=== PATIENT | female | born 1995 | race Caucasian/White ===

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

== ENCOUNTER 2017-02-14 23:25 | Emergency (ER) | payer OTHER ==
--- NOTE | 2017-02-14 23:39 | PDOC ---
Female Problem HPI - General Chief Complaint: General Medical Stated Complaint: VAGINAL BLEEDING, 8 WEEKS Date Seen by Provider: 02/14/17 Time Seen by Provider: 23:30 Source: POSITIVE: Patient Exam Limitations: POSITIVE: No limitations Nurse's Notes Reviewed & Considered: Yes - History of Present Illness Initial Comments: The patient is a at approximately 8 weeks gestational age based on last menstrual period who presents to the emergency department with complaints of vaginal bleeding. She states that after she urinated this evening she noticed that there was blood. She describes the degree of bleeding is like a light menstrual period. She does not have any associated lower abdominal pain or cramping, fevers or chills, urinary symptoms or any other associated complaints. She has not yet seen her technical training coordinator and has an appointment with Dr. Sen the first part of February. She does have a history of polycystic ovarian syndrome. - Patient Home Medications Home Medications: Home Medications Fish Oil 1,000 Mg Softgel 1 cap PO DAILY cap 03/05/13 Pnv/Iron,Carbonyl/Docusate/FA [Mynatal Ultracaplet] 1 tab PO DAILY tab metroNIDAZOLE Tab [Flagyl Tab] 500 mg PO Q12H #14 tab 02/15/17 - Patient Allergies Allergies/Adverse Reactions: Allergies Allergy/AdvReac Type Severity Reaction Status Date / Time No Known Allergies Allergy Verified 02/15/17 02:07 Past Medical History - heen HEENT History: Denies History Cardiovascular History: Denies History Respiratory History: Denies History Gastrointestinal History: Denies History Genitourinary History: Denies History Endocrine History: Denies History Musculoskeletal History: Denies History Prosthesis or Implant: No Neurological History: Denies History Blood Disorders: Denies History Psychiatric History: Depression, ADHD Cancer History: Denies History Alcohol Use: None Substance Use Type: None Previous Surgical History: Yes Anesthesia Reactions: No Significant Family History: No pertinent family hx Past Medical History Reviewed: Reviewed - No Changes ROS - Limitations ROS Limitations: No Limitations Constitution: DENIES: Chills, Fever Cardiovascular: REPORTS: Denies Cardiac Symptoms Respiratory: REPORTS: Denies Resp Symptoms Neurological: REPORTS: Denies Neuro Symptoms Gastrointestinal: DENIES: Abdominal Pain, Nausea, Vomitting Female Genitourinary Exam - General Appearance General Appearance: POSITIVE: Alert, Cooperative, No Acute Distress - HEENT HEENT: POSITIVE: Head Inspection Nml - Respiratory Respiratory: POSITIVE: No Respiratory Distress, Breath Sounds Normal - Cardiovascular Cardiovascular: POSITIVE: Regular Rate and Rhythm, Heart Sounds Normal - Abdomen Abdomen: POSITIVE: Soft, Non-Tender, No Distention - Genital / Rectal Pelvic Exam: POSITIVE: Other (Pelvic exam reveals normal external female genitalia, she does have some whitish discharge in the vaginal vault with no obvious current bleeding, uterus is nontender) - Skin Skin: POSITIVE: Intact, No Rash - Extremities Extremity: Normal ROM: (All Extremities), Normal Inspection: (All Extremities) - Neurological / Psychological Neurological: POSITIVE: Oriented X3, Motor Normal, Sensation Normal, Other (No focal deficits) Female Genitourinary Progress - Results Reviewed by me Xrays/CTs/US Reviewed by me: Yes Discussed with Radiologist: Yes Radiology Findings: Ultrasound reveals an intrauterine measuring approximately 6 weeks gestational age, yolk sac is identified however other determinations are difficult secondary to body habitus. Lab Results Reviewed: Yes Lab Results:: Laboratory Results 02/14/17 Range/Units 23:25 WBC 23.36 H (4.8-10.8) 10^3/uL RBC 4.81 (4.20-5.40) 10^6/uL Hgb 14.0 (12.0-16.0) g/dL Hct 41.2 (37.0-47.0) % MCV 85.7 (81-99) FL MCH 29.1 (27-31) PG MCHC 34.0 (33-37) g/dL RDW Std Deviation 47.0 (39-50) fL RDW Coeff of Otto 15.1 H (11.5-14.5) % Plt Count 300 (140-350) 10*3/uL MPV 10.2 (7.4-12.2) FL Neutrophils % (Manual) 85 H (50-80) % Band Neutrophils % 0 (0-10) % Lymphocytes % (Manual) 11 (10-50) % Monocytes % (Manual) 4 (0-12) % Eosinophils % (Manual) 0 (0-8) % Basophils % (Manual) 0 (0-1) % Metamyelocytes % Not Reportable Myelocytes % Not Reportable Promyelocytes % Not Reportable Blast Cells Not Reportable WBC Morphology Comment Normal morphology (NORM) Plt Morphology Comment Normal morphology (NORM) RBC Morph Comment Normal morphology (NORM) Sodium 136 (135-145) meq/L Potassium 3.7 L (3.8-5.2) meq/L Chloride 102 (98-112) meq/L Carbon Dioxide 23 (23-33) meq/L Anion Gap 11 (5-20) BUN 12 (7-22) mg/dL Creatinine 0.6 (0.50-1.20) mg/dL Estimated GFR > 60 (>60 ml/min/1.73m(2)) BUN/Creatinine Ratio 20.00 (6-20) Glucose 92 (78-110) mg/dL Calculated Osmolality 281.0 (267-292) mOsm/kg Calcium 9.8 (8.7-10.7) mg/dL HCG, Quant 62255 mIU/ML Ur Collection Type Clean catch urine Urine Color Yellow Urine Clarity Clear (CLEAR) Urine pH 6.0 (5.0-8.5) Ur Specific [place] 1.020 (1.005-1.030) Urine Protein Negative (NEG) mg/dl Urine Glucose (UA) Negative (NEG) mg/dL Urine Ketones Negative (NEG) Urine Occult Blood Large H (NEG) Urine Nitrate Negative (NEG) Urine Bilirubin Negative (NEG) Urine Urobilinogen 0.2 (0.2) EU/dL Ur Leukocyte Esterase Negative (NEG) Urine RBC 3-5 (NONE) /hpf Urine WBC 1-3 (NONE) Ur Squamous Epith Cells Moderate (NONE) Ur Renal Epithelial Cell None (NONE) Urine Crystals None Urine Bacteria Few (NONE) Urine Casts None (NONE) Urine Mucus Few (NONE) Urine Trichomonas None (NONE) Urine Yeast None (NONE) Ur Culture Indicated? Culture not set Blood Type O POSITIVE - Patient's Progress MDM / ED Course: Ultrasound reveals an intrauterine measuring 6 weeks gestational age with yolk sac identified, further evaluation was difficult secondary to body habitus. She had no further vaginal bleeding here in the emergency department. She did test positive for chlamydia as well as Gardnerella on the vaginitis panel. Findings were discussed with the patient. She was given Zithromax 1 g by mouth here in the emergency department for treatment of chlamydia. She was also started on Flagyl 500 mg twice a day for 7 days. She is advised return to the emergency room if she develops increased pain, increased bleeding, fever, worsening or change in symptoms. She is advised to follow-up with CUSTOMER SERVICE AGENT in 2- 3 days for reevaluation. - Consult Counseled: POSITIVE: Patient, RE: Radiology Results, RE: DX, RE: Need for F/U Patient Care Time - Estimated PCT Patient Care Time (In Minutes): 30 Vital Signs - Recent Vital Signs Vital Signs: Vital Signs (Last 8 hours) Temp Pulse Resp BP Pulse Ox 02/14/17 23:31 96.9 F 102 H 18 106/91 97 - VS Reviewed Vital Signs Reviewed: Yes Discharge Clinical Impression: Vaginal bleeding in patient at less than 20 weeks gestation, Chlamydia , Bacterial vaginitis Discharge Disposition: Discharged to Home Condition: Good Prescriptions / Orders: metroNIDAZOLE Tab [Flagyl Tab] 500 mg PO Q12H #14 tab Patient Instructions Given at Discharge: Bacterial Vaginosis (ED), Chlamydia ( ED) Additional Instructions: The ultrasound showed an early measuring approximately 6 weeks gestational age within the uterus. Base line. HCG levels were drawn as well. In addition testing revealed a positive test for chlamydia as well as for bacterial vaginitis. This will need to be treated with antibiotics. He was given a one-time dose of Zithromax 1 g and were started on Flagyl 500 mg twice a day for 7 days. Return to the emergency room if increased bleeding or pain, fever, worsening or change in symptoms. Recommend follow-up with CUSTOMER SERVICE AGENT on Friday of next week. Follow Up With: JENNIFER SEN [Primary Care Provider] -
[2017-02-14] MEDS: NORMAL SALINE 10 ML SYRINGE FLUSH IVP PRN (23:40)
[2017-02-14 23:54] LABS: BILIRUBIN,URINE NEGATIVE (NEG); CLARITY,URINE CLEAR (CLEAR); COLOR,URINE YELLOW; GLUCOSE, URINE (UA) NEGATIVE (NEG); NITRATE,URINE NEGATIVE (NEG); OCCULT BLOOD,URINE LARGE (NEG); PROTEIN,URINE NEGATIVE (NEG); UROBILINOGEN,URINE 0.2 EU/dL (0.2)
[2017-02-14 23:58] LABS: BLOOD UREA NITROGEN 12 mg/dL (7-22); CALCIUM 9.8 mg/dL (8.7-10.7); EST GLOMERULAR FILTRATION > 60 (>60 ml/min/1.73m(2))
[2017-02-15 00:06] LABS: BACTERIA,URINE FEW; SQUAMOUS EPITHELIAL CELL,UR MODERATE; URINE SAMPLE TYPE CLEAN CATCH URINE
[2017-02-15 00:31] LABS: HEMATOCRIT 41.2 % (37.0-47.0); MEAN CORPUSCULAR HEMOGLOBIN 29.1 PG (27-31); MEAN CORPUSCULAR VOLUME 85.7 FL (81-99); RED BLOOD COUNT 4.81 10^6/uL (4.20-5.40)
[2017-02-15 00:32] LABS: BAND NEUTROPHILS % 0 % (0-10); BASOPHILS % (MANUAL) 0 % (0-1); EOSINOPHILS % (MANUAL) 0 % (0-8); LYMPHOCYTES % (MANUAL) 11 % (10-50); MEAN PLATELET VOLUME 10.2 FL (7.4-12.2); MONOCYTES % (MANUAL) 4 % (0-12); NEUTROPHILS % (MANUAL) 85 % (50-80); PLATELET MORPHOLOGY COMMENT NORMAL MORPHOLOGY (NORM); RBC MORPHOLOGY COMMENT NORMAL MORPHOLOGY (NORM); WBC MORPHOLOGY COMMENT NORMAL MORPHOLOGY (NORM)
[2017-02-15 02:21] VITALS: RESP 18; TEMP 96.9
[2017-02-15] MEDS: metroNIDAZOLE Tab 500 MG TAB PO ONE (02:30)
[2017-02-15] MEDS: AZITHROMYCIN 250 MG TABLET PO ONE (02:30)
== END 2017-02-15 02:40 | disposition home or self-care (01) ==
LOC: ER 23:25
DX: O26.851 Spotting complicating pregnancy, first trimester (principal); O98.811 Other maternal infectious and parasitic diseases complicating pregnancy, first trimester; Z3A.01 Less than 8 weeks gestation of pregnancy
CPT/HCPCS: 76801; 80048; 81001; 81003; 84702; 85007; 86900; 86901; 87480; 87491; 87510; 87591; 87660; 99283

== ENCOUNTER → 2017-02-27 | Outpatient (CLI) | payer OTHER ==
[2017-02-27 13:13] LABS: BASOPHILS # (AUTO) 0.04 10*3/UL; BASOPHILS % (AUTO) 0.3 % (0-1); EOSINOPHILS # (AUTO) 0.07 10*3/UL; EOSINOPHILS % (AUTO) 0.5 % (0-8); HEMATOCRIT 40.2 % (37.0-47.0); HEMOGLOBIN 13.3 g/dL (12.0-16.0); LYMPHOCYTES # (AUTO) 3.15 10*3/uL; MEAN CORPUSCULAR HEMOGLOBIN 28.5 PG (27-31); MEAN CORPUSCULAR HGB CONC 33.1 g/dL (33-37); MEAN CORPUSCULAR VOLUME 86.3 FL (81-99); MEAN PLATELET VOLUME 10.3 FL (7.4-12.2); MONOCYTES # (AUTO) 1.02 10*3/UL (0.3-0.8); NEUTROPHILS # (AUTO) 10.21 10*3/UL; NEUTROPHILS % (AUTO) 70.2 % (50-80); RED BLOOD COUNT 4.66 10^6/uL (4.20-5.40)
[2017-02-27 13:15] LABS: PLATELET MORPHOLOGY COMMENT NORMAL MORPHOLOGY (NORM); RBC MORPHOLOGY COMMENT NORMAL MORPHOLOGY (NORM); WBC MORPHOLOGY COMMENT NORMAL MORPHOLOGY (NORM)
[2017-02-27 13:29] LABS: HEMOGLOBIN A1C 5.19 % (4.2-6.0)
[2017-02-27 13:50] LABS: HIV ANTIBODY NEGATIVE (N); HIV-1 P24 ANTIGEN NEGATIVE (N)
== END ==
LOC: MOB LAB 11:49
PROVIDERS: ATTEND Student in an Organized Health Care Education/Training Program
DX: Z36 Encounter for antenatal screening of mother (principal); O99.211 Obesity complicating pregnancy, first trimester
CPT/HCPCS: 36415; 80081; 83036; 84443; 86900; 86901; 87491; 87591

== ENCOUNTER → 2017-03-04 | Outpatient (CLI) | payer OTHER ==
--- NOTE | 2017-03-04 09:25 | DI ---
US OB , LIMITED,03/04/2017 8:19 AM: Clinical History: Verify dates. Previous Exam: February 15, 2017 Findings: Multiple grayscale and color Doppler sonographic images are obtained through the pelvis demonstrating a single live intrauterine gestation with detected Doppler heart tones of 172 beats per minute. There is normal motion within the limbs. Estimated gestational age was determined by a crown-rump length of 20 mm corresponding with an estima sari gestational age of 9 weeks 5 days. The left ovary measures 3.3 x 2.4 x 2.0 cm with a normal sonographic appearance. Impression: Single live intrauterine gestation with estimated gestational age of 9 weeks 5 days.
== END ==
LOC: US 08:15
PROVIDERS: ATTEND Student in an Organized Health Care Education/Training Program
DX: Z36 Encounter for antenatal screening of mother (principal); Z3A.09 9 weeks gestation of pregnancy
CPT/HCPCS: 76815

== ENCOUNTER 2017-09-23 07:32 | Inpatient (IN) ==
[2017-09-23] MEDS ORDERED: LIDOCAINE HCL 2 % 10 ML JELLY URO-JECT TOPICAL PRN (07:53)
[2017-09-23] MEDS ORDERED: LIDOCAINE W/ SODIUM BICARB 0.5 ML SYR SUBD PRN (07:53)
[2017-09-23] MEDS ORDERED: Metoclopramide Inj 10 MG/2 ML VIAL IV ONE (07:53)
[2017-09-23] MEDS ORDERED: Famotidine Inj 20 MG in Normal Saline Flush 10 ML IVP ONE (07:53)
[2017-09-23] MEDS ORDERED: CefOXitin Inj 2 GM in Sodium Chloride 0.9% 100 ML IV ONE (07:53)
[2017-09-23] MEDS ORDERED: CITRIC ACID/SODIUM CITRATE 30 ML CUP PO ONE (07:53)
[2017-09-23] MEDS ORDERED: NORMAL SALINE 10 ML SYRINGE FLUSH IVP PRN ×3 (07:53→12:46)
[2017-09-23] MEDS ORDERED: Oxytocin 20 Units + LR 20 UNIT/1,000 ML BAG IV SCH ×2 (08:00→12:46)
[2017-09-23] MEDS ORDERED: Lactated Ringers 1,000 ML PRIMARY IV SCH ×2 (08:00→12:00)
[2017-09-23 08:16] LABS: Hematocrit [HCT] 39.1 % (37.0-47.0); Hemoglobin [HGB] 13.2 g/dL (12.0-16.0); MEAN CORPUSCULAR HEMOGLOBIN 31.7 PG (27-31); MEAN CORPUSCULAR HGB CONC 33.8 g/dL (33-37); MEAN PLATELET VOLUME 9.7 FL (7.4-12.2); RED BLOOD COUNT 4.16 10^6/uL (4.20-5.40)
[2017-09-23] MEDS: Lactated Ringers 1,000 ML PRIMARY IV ONE ×2 (08:18→08:44)
[2017-09-23] MEDS: NORMAL SALINE 10 ML SYRINGE FLUSH IVP PRN (08:19)
[2017-09-23] MEDS ORDERED: fentaNYL Inj 100 MCG/2 ML VIAL ONE (08:27)
[2017-09-23] MEDS ORDERED: ePHEDrine Inj 50 MG/ML AMP ONE (08:28)
[2017-09-23] MEDS ORDERED: PHENYLEPHRINE 10,000 MCG/1 ML VIAL ONE (08:29)
[2017-09-23] MEDS ORDERED: Sodium Chloride 0.9% vial 10 ML ONE (08:29)
[2017-09-23] MEDS ORDERED: MORPHINE SULFATE/PF 10 MG/10 ML AMPULE ONE (08:43)
[2017-09-23] MEDS ORDERED: fentaNYL Inj 250 MCG/5 ML VIAL ONE (09:34)
[2017-09-23] MEDS ORDERED: MIDAZOLAM 5 MG/1 ML ONE (09:47)
[2017-09-23] MEDS ORDERED: KETAMINE 100 MG/1 ML - 5 ML ONE (10:12)
[2017-09-23] MEDS ORDERED: Lactated Ringers 1,000 ML PRIMARY IV ONE (10:15)
[2017-09-23] MEDS ORDERED: HYDROmorphone 2 MG/1 ML ONE (10:16)
[2017-09-23] MEDS: HYDROmorphone 2 MG/1 ML IVP PRN ×3 (11:16→12:00)
[2017-09-23] MEDS ORDERED: fentaNYL Inj 100 MCG/2 ML VIAL IVP PRN (11:48)
[2017-09-23] MEDS ORDERED: ONDANSETRON 4 MG/2 ML VIAL IVP PRN ×2 (11:48→12:46)
[2017-09-23] MEDS ORDERED: Ondansetron ODT Tab 8 MG TAB PO PRN (11:48)
[2017-09-23] MEDS ORDERED: ATROPINE SULFATE 0.4 MG/1 ML VIAL IVP PRN (11:48)
[2017-09-23] MEDS ORDERED: Famotidine Inj 20 MG in Normal Saline Flush 10 ML IVP PRN (12:46)
[2017-09-23] MEDS ORDERED: diphenhydrAMINE 50 MG/1 ML VIAL IV PRN (12:46)
[2017-09-23] MEDS ORDERED: Nalbuphine Inj 20 MG/ML Ampule IVP PRN (12:46)
[2017-09-23] MEDS ORDERED: diphenhydrAMINE 25 MG CAPSULE PO PRN (12:46)
[2017-09-23] MEDS ORDERED: CALCIUM CARBONATE 500 MG (TUMS) CHEWABLE TABLET PO PRN (12:46)
[2017-09-23] MEDS ORDERED: Naloxone Inj 0.01 MG, Sodium Chloride 0.9% vial 1 ML IVP PRN ×2 (12:46)
[2017-09-23] MEDS ORDERED: LANOLIN HPA 40 GM TUBE TOPICAL PRN (12:46)
[2017-09-23] MEDS ORDERED: HYDROmorphone 2 MG/1 ML IVP PRN (12:47)
[2017-09-23 14:50] LABS: BLOOD UREA NITROGEN 9 mg/dL (7-22); SERUM ALBUMIN 2.9 g/dL (3.5-4.8); Uric Acid 3.9 mg/dl (2.5-6.2)
--- NOTE | 2017-09-23 16:11 | CRNA.PROGR ---
Anesthesia Time - - Start date: 09/23/17 End date: 09/23/17 - Procedure/Recovery Time Anesthesia : Time In: 09:02 Anesthesia : Time Out: 11:10 Anesthesia : Total Time: 128 - Total Anesthesia Time Total Anesthesia Time (minutes): 128 - Other Weight: 146.964 kg Height: 5 ft 3 in Body Mass Index (BMI): 57.4 Physical Status: P3 Anesthesia Type: General Anesthesia : ET (super morbid obesity BMI 57, Term pregancy, Breech baby, manuel, Ruptured membranes.) Obstetrics: C/S anesthesia only
--- NOTE | 2017-09-23 16:16 | CRNA.PROGR ---
Anesthesia Recovery Phase I - Post Anesthesia Evaluation Patient's Condition on Arrival in Phase I: Stable Patient's Condition on Arrival in Phase II: Stable Pain Level: 3 (Very mature on emergence. Iv pain medicine helps.)
--- NOTE | 2017-09-23 16:17 | CRNA.PROGR ---
Post Anesthesia Phase II - Post Anesthesia Phase II Patient Stable and Discharged To: OB Care Assumed By Surgeon: Louie Fuller MD Temperature: 98.2 F Pulse Rate: 78 Respiratory Rate: 16 Blood Pressure: 151/90 Pulse Ox: 100 Total Alyssa Score at Discharge: 9 Post Anesthesia Discharge Criteria Met: Yes
[2017-09-23] MEDS: KETOROLAC 15 MG/1 ML VIAL IVP SCH (16:39)
[2017-09-23] MEDS: D5-LR 1,000 ML PRIMARY IV SCH (16:39)
[2017-09-23] MEDS: oxyCODONE-ACETAMINOPHEN 5-325 TAB PO PRN ×2 (19:09→22:57)
--- NOTE | 2017-09-23 21:17 | OB.OP.NOTE ---
Operative Report - - Surgeon: Gurwinder Odom MD Registration Specialist: Louie Fuller MD Anesthesia Type: General Anesthesia Provider: Coretta Valencia CRNA Surgery Date: 09/23/17 Preoperative Diagnosis: Term (38 5/7 weeks gestation), Breech presentation, SROM - meconium stained fluid, Morbid obesity - BMI 57 Postoperative Diagnosis: Same. Normal ovaries, tubes, uterus. R paraovarian cyst excised Procedure: Primary LTCS Complications: None apparent Estimated Blood Loss (mL): 600 Description of Procedure: The patient was taken to the operating room where spinal anesthesia was attempted, unfortunately 2/2 patient's body habitus spinal anesthesia was not accomplished. Patient was then placed in dorsal supine position with leftward tilt. A fuentes was placed. Her abdomen was taped with 2inch silk in an attempt to lift the panus. She was then prepared and draped in the normal sterile fashion. Dr. Odom started the procedure. Once general anesthesia was accomplished a Pfannenstiel skin incision (at the level of the pannus fold) was then made with the scalpel and carried through to the underlying layer of fascia with Bovie. The fascia was incised in the midline and the incision extended laterally with the Bovie. The superior aspect of the fascial incision was then grasped with Bobo clamps, elevated and the underlying rectus muscles dissected off bluntly. Attention was then turned to the inferior aspect of this incision which in a similar fashion was grasped with Bobo clamps and the rectus muscles dissected off both bluntly and with the Bovie. The rectus muscle was then in the midline, and the peritoneum identified, tented up, and entered in blunt fashion. The peritoneal incision was then extended superiorly and inferiorly with good visualization of the bladder. The Antonio retractor was then inserted and the vesicouterine peritoneum was identified. The lower uterine segment incised in the transverse fashion with the scalpel. The uterine incision was then extended laterally blunt fashion. The 's butt was delivered atraumatically followed by the legs arms and then head. The infant was limp and blue. The cord was clamped and cut. The infant was handed off to the awaiting nurse. Cord gases and cord blood were sent for analysis. The infant was delivered 4 minutes after cut time. The placenta was then removed manually; the uterus exteriorized, and cleared of all clots and debris. I then took over. The uterine incision was repaired with 0 Vicryl in a running, locked fashion. A second layer of the same suture was used to obtain excellent hemostasis. The peritoneal cavity was then copiously irrigated with warm saline. A R paraovarian cyst was noted and excised with bovie cautery. The uterus was returned to the abdomen. The paracolic gutters were copiously irrigated with warm saline and a second look at the uterus incision did reveal a small bleed. A figure of 8 of 0 vicryl was used to accomplish excellent hemostasis. The peritoneum was closed with 2-0 Vicryl. The fascia was reapproximated with a looped 0 PDS in a running fashion. The subcutaneous space was irrigated with copiously with warm saline and then closed first with 3 layers of 3-0 Vicryl and then more superficially with metal radha. A Silverlon dressing was applied. Fundal massage was completed with 2 small clots in vaginal vault noted. The patient tolerated the procedure well. Sponge, lap, and needle counts were correct x2. Cefoxitin was given preoperatively less than one hour prior to incision time. Given "labor" with contractions and SROM - azithromycin 500mg was given IV. The patient was taken to the recovery room in stable condition. Postop DVT ppx ordered, she will qet enoxaparin 0.5mg/kg bid. I will also give her a dose of Invanz later this evening given her morbid obesity and risk of infection. Cord gas pH 7.31, pCO2 47, HCO3 24, BE -2. Patient Problems - Patient Problem List (1) BMI 50.0-59.9, adult Current Visit: Yes Status: Acute Code(s): Z68.43 - Body mass index (BMI) 50- 59.9 , adult Category: Medical (2) SROM (spontaneous rupture of membranes) Current Visit: Yes Status: Acute Category: Medical (3) Breech presentation Current Visit: No Status: Acute Code(s): O32.1XX0 - Maternal care for breech presentation, not applicable or unspecified Category: Medical
[2017-09-23] MEDS: Ertapenem Inj 1 GM in Sodium Chloride 0.9% 100 ML IV SCH (22:30)
[2017-09-23] MEDS: ENOXAPARIN SODIUM 80 MG/0.8 ML SYRINGE SUBCUT SCH (22:37)
[2017-09-24] MEDS: D5-LR 1,000 ML PRIMARY IV SCH ×2 (02:39→17:49)
[2017-09-24] MEDS: KETOROLAC 15 MG/1 ML VIAL IVP SCH ×3 (02:51→15:16)
[2017-09-24] MEDS: NORMAL SALINE 10 ML SYRINGE FLUSH IVP PRN (02:52)
[2017-09-24] MEDS: oxyCODONE-ACETAMINOPHEN 5-325 TAB PO PRN ×4 (02:52→20:44)
[2017-09-24 08:08] LABS: Hematocrit [HCT] 30.9 % (37.0-47.0); Hemoglobin [HGB] 10.3 g/dL (12.0-16.0); MEAN CORPUSCULAR HEMOGLOBIN 32.1 PG (27-31); MEAN CORPUSCULAR HGB CONC 33.3 g/dL (33-37); MEAN CORPUSCULAR VOLUME 96.3 FL (81-99); RED BLOOD COUNT 3.21 10^6/uL (4.20-5.40)
--- NOTE | 2017-09-24 09:20 | OB.PROGRES ---
Subjective Post Op Day: 1 Pain Management: PO Fuentes Catheter: Yes Flatus: Yes Diet: Regular Feeding Method: / Bottle Ambulating: Yes Concerns / Additional Information: Patient denies any concerns. She was up to the nursery for a couple of hours last night. Objective - General General Appearance: POSITIVE: No Acute Distress, Cooperative - Cardiovacular Cardiovascular Exam: POSITIVE: RRR Edema: No Pedal Edema Extremities: Negative Angélica's - Bilaterally - Respiratory Respiratory Exam: POSITIVE: Clear to Auscultation - Bilaterally, Breathing Non Labored - Abdomen Bowel Sounds: Present Abdominal Wound Assessment: Silverlone Dressing Assesstment / Plan (1) BMI 50.0-59.9, adult Current Visit: Yes Status: Acute (2) SROM (spontaneous rupture of membranes) Current Visit: Yes Status: Acute (3) Breech presentation Current Visit: No Status: Acute Support Text: 22 yo G1 now P1 POD 1 s/p primary LTCS. -Pain well controlled -Pull fuentes today, shower and change dressing. -PT consulted for wound care given morbid obesity and high risk for wound infection -Tolerating a regular diet -Patient plans to breast feed, she is pumping too. Baby is in critical care nursery so not breast feeding at this time. -Restart zoloft today for depression -On lovenox for DVT ppx -Anticipate d/c in 24-48 hours
[2017-09-24] MEDS: Prenatal Multivitamin Tab 1 TAB TAB PO SCH (10:02)
[2017-09-24] MEDS: Senna/Docusate Tab 1 TAB TAB PO SCH ×2 (10:02→21:39)
--- NOTE | 2017-09-24 16:25 | CRNA.PROGR ---
Anesthesia Note - Progress Notes Anesthesia Progress Note: Intake and Output (24hr x 4 totals) 09/22/17 09/23/17 09/24/17 09/25/17 05:59 05:59 05:59 05:59 Intake Total 7700 / 7700 1100 / 1100 Output Total 2450 / 2450 900 / 900 Balance 5250 / 5250 200 / 200 Vital Signs - Last Taken Temperature 98.3 F 09/24/17 04:00 Pulse Rate 90 09/24/17 07:20 Respiratory Rate 18 09/24/17 04:00 Blood Pressure 134/82 09/24/17 04:00 Pulse Ox 96 09/24/17 04:00 Laboratory Results 09/24/17 Range/Units 08:02 WBC 17.01 H (4.8-10.8) 10^3/uL RBC 3.21 L (4.20-5.40) 10^6/uL Hgb 10.3 L (12.0-16.0) g/dL Hct 30.9 L (37.0-47.0) % MCV 96.3 (81-99) FL MCH 32.1 H (27-31) PG MCHC 33.3 (33-37) g/dL RDW Std Deviation 49.8 (39-50) fL RDW Coeff of Otto 14.8 H (11.5-14.5) % Plt Count 212 (140-350) 10*3/uL MPV 9.0 (7.4-12.2) FL I awakened her this am. She is cheerful. Has had her pain controlled. Has been walking around. Moses is out. Baby is doing well. Her support person is with her.
[2017-09-24] MEDS ORDERED: Water, Sterile for Inj 10 ML ONE (20:54)
[2017-09-24] MEDS ORDERED: Sodium Chloride 0.9% vial 10 ML ONE (20:55)
[2017-09-24] MEDS: ENOXAPARIN SODIUM 80 MG/0.8 ML SYRINGE SUBCUT SCH (21:39)
[2017-09-24] MEDS: Ertapenem Inj 1 GM in Sodium Chloride 0.9% 100 ML IV SCH (21:46)
[2017-09-25] MEDS: KETOROLAC 15 MG/1 ML VIAL IVP SCH (01:37)
[2017-09-25] MEDS: oxyCODONE-ACETAMINOPHEN 5-325 TAB PO PRN (03:48)
--- NOTE | 2017-09-25 07:48 | OB.PROGRES ---
Subjective Post Op Day: 2 Pain Management: PO Moses Catheter: No Flatus: Yes Diet: Regular Feeding Method: Exculsively Ambulating: Yes Concerns / Additional Information: Patient without any concerns this morning. Working with . Objective - General General Appearance: POSITIVE: No Acute Distress, Cooperative - Cardiovacular Cardiovascular Exam: POSITIVE: RRR Edema: +1 Pedal Edema Extremities: Negative Angélica's - Bilaterally - Respiratory Respiratory Exam: POSITIVE: Clear to Auscultation - Bilaterally, Breathing Non Labored - Abdomen Bowel Sounds: Present Abdominal Wound Assessment: Silverlone Dressing - Fundus/Lochia/Perineum Uterus Consistency: Firm Uterus Position: POSITIVE: Below Umbilicus Lochia Amount: Small 10-25 ml Lochia Color: Rubra/Red Assesstment / Plan (1) BMI 50.0-59.9, adult Current Visit: Yes Status: Acute (2) SROM (spontaneous rupture of membranes) Current Visit: Yes Status: Acute (3) Breech presentation Current Visit: No Status: Acute Support Text: 22 yo G1 now P1 POD 2 s/p primary LTCS for breech presentation. -Pain well controlled -PT was consulted for wound care given morbid obesity and high risk for wound infection - Lissette Rodarte came by yesterday for bandage change and offered some tips -Tolerating a regular diet -Breast feeding, working with -Zoloft for depression -On lovenox for DVT ppx -Anticipate d/c tomorrow
[2017-09-25] MEDS: IBUPROFEN 800 MG TABLET PO PRN ×3 (09:44→22:12)
[2017-09-25] MEDS: Senna/Docusate Tab 1 TAB TAB PO SCH ×2 (09:44→20:34)
[2017-09-25] MEDS: Prenatal Multivitamin Tab 1 TAB TAB PO SCH (09:44)
[2017-09-25] MEDS: ENOXAPARIN SODIUM 80 MG/0.8 ML SYRINGE SUBCUT SCH (20:33)
[2017-09-25] MEDS ORDERED: Sertraline Tab 50 MG TAB PO SCH (21:00)
[2017-09-26] MEDS: IBUPROFEN 800 MG TABLET PO PRN (07:02)
--- NOTE | 2017-09-26 08:19 | DCSUMMARY ---
Hospitalization Summary Admit Date: 09/23/17 Discharge Date: 09/26/17 Primary Diagnosis:: primary LTCS for breech presentation Secondary Diagnosis:: morbid obesity, meconium stained amniotic fluid Primary Surgery and Date: primary LTCS for breech presentation on 09/23/17 Delivery Type: Hospital Course: 22 yo admitted at 38 5/7 weeks gestation with PROM, meconium stained. Primary LTCS performed for breech presentation. Due to body habitus, spinal anesthesia was not accomplished, instead general anesthesia. She has done well post op with no obvious complications. PT was consulted for a wound care prevention discussion. She is breast feeding well. The did have a rough transition and required a 48 hour sepsis ruleout but is doing well now. / Postop Complications: none apparent Exam - Vitals Vital Signs: Vital Signs Temperature 97.7 F Temperature Source Oral Pulse Rate [Pulse Oximeter] 86 Pulse Rate 86 Respiratory Rate 20 Blood Pressure [Right Arm] 141/87 Blood Pressure 151/90 Pulse Ox 96 Oxygen Flow Rate 3 Oxygen Delivery Method Room Air Height 5 ft 3 in Weight 324 lb - General General Appearance: No Acute Distress, Cooperative - Head Head Exam: Normal Inspection - Eye Eye Exam: POSITIVE: Normal Appearance - Neck Neck Exam: Normal Inspection - Respiratory Respiratory Exam: POSITIVE: Clear to Auscultation - Bilaterally, Breathing Non Labored - Cardiovascular Cardiovascular Exam: POSITIVE: RRR - GI/Abdominal GI/Abdominal Exam: POSITIVE: Normal Bowel Sounds Additional GI/Abdominal Exam Details: silverlon dressing on - Extremities Extremities Exam: POSITIVE: +1 Edema - Neurological Neurological Exam: POSITIVE: Alert, Oriented x 3 - Psychiatric Additional Psychiatric Exam Details: tearful - Integumentary Integumentary Exam: POSITIVE: Normal Color, Warm Patient Problems - Patient Problem List (1) BMI 50.0-59.9, adult Status: Acute Code(s): Z68.43 - Body mass index (BMI) 50-59.9 , adult Category: Medical (2) SROM (spontaneous rupture of membranes) Status: Acute Category: Medical (3) Breech presentation Status: Acute Code(s): O32.1XX0 - Maternal care for breech presentation, not applicable or unspecified Category: Medical (4) hypertension Status: Acute Code(s): O16.5 - Unspecified maternal hypertension, complicating the puerperium Support Text: 22 yo G1 now P1 POD 3 s/p primary LTCS for breech presentation. Doing great. -Tolerating a regular diet -Breast feeding, working with -Zoloft for depression, increased to 100mg po daily -BPs have started to creep up, they were >140/90 post op then normalized, starting to increase again. If consistently >140/90 will start nifedipine. Strict return precautions discussed -D/c to home today with close f/u -Rxs sent for percocet 5/325 #30, motrin 800mg #60, sennokot Category: Medical
[2017-09-26] MEDS: Prenatal Multivitamin Tab 1 TAB TAB PO SCH (11:02)
[2017-09-26] MEDS: Senna/Docusate Tab 1 TAB TAB PO SCH (11:03)
[2017-09-26 16:49] VITALS: BP 147/77; RESP 16; TEMP 97.8; O2SAT 97
== END 2017-09-26 16:47 | disposition home or self-care (01) | DRG 765 ==
LOC: OBOP 07:32 → OBOR 07:54 → OBIP 12:00
PROVIDERS: ADMIT Student in an Organized Health Care Education/Training Program; ATTEND Student in an Organized Health Care Education/Training Program